=== PATIENT | male | born 1970 | race Caucasian/White ===

== ENCOUNTER → 2023-09-25 | Outpatient (CLI) | payer OTHER ==
[~2023-09-25] MED LIST: SULTRIDS PO
== END ==
LOC: LAB 09:03 → PLD 09:03 → LAB SHORT 09:03
DX: D14.0 Benign neoplasm of middle ear, nasal cavity and accessory sinuses (principal)
CPT/HCPCS: 88304

== ENCOUNTER → 2025-03-25 | Outpatient (CLI) | payer OTHER | LOC: LAB SHORT 08:01 → LAB 08:01 | DX: B35.1 Tinea unguium (principal); L60.2 Onychogryphosis | CPT/HCPCS: 88305; 88312 ==

== ENCOUNTER → 2025-03-25 | Outpatient (CLI) | payer OTHER | END | disposition home or self-care (01) | LOC: LAB 17:09 → LAB SHORT 17:09 | DX: B35.1 Tinea unguium (principal) | CPT/HCPCS: 87220 ==